=== PATIENT | male | born 1985 | race African-American/Black ===

== ENCOUNTER 2016-07-17 22:06 | Emergency (ER) | payer OTHER ==
[~2016-07-17] VITALS: Ht 175.3 cm; Wt 68.0 kg
[2016-07-17 22:06] VITALS: BP 101/52
[2016-07-17] MEDS ORDERED: NABUMETONE 750750 M1 PO (22:29)
== END 2016-07-17 22:54 | disposition home or self-care (01) ==
LOC: ER 22:06
DX: S83.92XA Sprain of unspecified site of left knee, initial encounter (principal); F17.210 Nicotine dependence, cigarettes, uncomplicated; Y08.89XA Assault by other specified means, initial encounter; Y93.89 Activity, other specified; Y92.89 Other specified places as the place of occurrence of the external cause; Y99.8 Other external cause status